=== PATIENT | female | born 1975 | race Caucasian/White ===

== ENCOUNTER 2021-01-27 09:40 | Emergency (ER) | payer OTHER ==
[~2021-01-27] VITALS: Ht 165.1 cm; Wt 127.9 kg
[~2021-01-27 09:40] MED LIST: TRAMADOL HCL50 MG PO
[2021-01-27 11:33] LABS: HEMOGLOBIN 14.9 gm/dl (12.3-15.3); RED BLOOD COUNT 4.9 M/UL (4.00-5.10)
[2021-01-27 11:55] LABS: BUN/CREATININE RATIO 13 (0-10)
== END 2021-01-27 13:56 | disposition home or self-care (01) ==
LOC: ER1 09:40
PROVIDERS: Physician Assistant
DX: Z23 Encounter for immunization (principal); U07.1 COVID-19; E11.9 Type 2 diabetes mellitus without complications; Z90.710 Acquired absence of both cervix and uterus; Z88.5 Allergy status to narcotic agent
CPT/HCPCS: 71045; 80053; 85025; 86140; 99285; J7030; M0243; U0002